=== PATIENT | female | born 1965 | race Caucasian/White ===

== ENCOUNTER 2017-04-25 01:12 | Emergency (ER) | payer OTHER ==
[2017-04-25 03:16] LABS: HEMOGLOBIN 12.5 gm/dl (12.3-15.3); RED BLOOD COUNT 4.23 M/UL (4.00-5.10); WHITE BLOOD COUNT 10.4 K/UL (4.5-11.0)
[2017-04-25 03:42] LABS: BUN/CREATININE RATIO 13 (0-10)
[2017-08-14] MEDS ORDERED: VENTOLIN/PROVE0.5 ML INH (22:35)
[2017-08-14] MEDS ORDERED: DESYREL 50 MG T50 MG PO (22:35)
[2017-08-14] MEDS ORDERED: NEURONTIN 300300 MG PO (22:35)
[2017-08-14] MEDS ORDERED: FLONASE 0.05% N16 GM (22:36)
[2017-08-14] MEDS ORDERED: LAMICTAL TAB 2525 MG PO (22:37)
[2017-08-14] MEDS ORDERED: QUETIAPINE FUM100 MG PO (22:38)
[2017-08-14] MEDS ORDERED: OXYBUTYNIN CHLO15 MG PO (22:38)
[2017-08-14] MEDS ORDERED: PAROXETINE HCL40 MG PO (22:39)
[2017-08-14] MEDS ORDERED: TIZANIDINE HCL6 MG PO (22:39)
[2017-08-14] MEDS ORDERED: LEVOTHYROXINE50 MCG PO (22:40)
[2017-08-14] MEDS ORDERED: WELLBUTRIN XL150 MG PO (22:40)
[2017-08-14] MEDS ORDERED: LISINOPRIL20 MG PO (22:41)
[2017-08-14] MEDS ORDERED: PRAVACHOL40 MG PO (22:41)
[2017-08-14] MEDS ORDERED: OMEPRAZOLE20 MG PO (22:41)
[2017-08-14] MEDS ORDERED: CLONIDINE HCL0.1 MG PO (22:41)
[2017-08-14] MEDS ORDERED: CYMBALTA 30 MG30 MG PO (22:42)
[2017-08-15] MEDS ORDERED: CYMBALTA30 MG PO (15:08)
[2017-08-15] MEDS ORDERED: FLONASE ALLER15.8 ML (15:10)
[2017-08-15] MEDS ORDERED: CATAPRES 0.1MG0.1 MG PO (15:11)
[2017-08-15] MEDS ORDERED: SYNTHROID50 MCG PO (15:32)
[2017-08-15] MEDS ORDERED: AZITHROMYCIN250 MG PO (15:35)
[2017-08-15] MEDS ORDERED: CEFUROXIME500 MG PO (15:36)
[2017-08-15] MEDS ORDERED: IBUPROFEN800 MG PO (15:45)
== END 2017-04-25 06:35 | disposition home or self-care (01) ==
LOC: ER1 01:12
PROVIDERS: Family Medicine
DX: R45.4 Irritability and anger (principal); R45.1 Restlessness and agitation; F31.9 Bipolar disorder, unspecified; E78.5 Hyperlipidemia, unspecified; I10 Essential (primary) hypertension; Z79.1 Long term (current) use of non-steroidal anti-inflammatories (NSAID); Z79.899 Other long term (current) drug therapy; F17.200 Nicotine dependence, unspecified, uncomplicated
CPT/HCPCS: 36415; 80053; 80307; 81001; 85025; 99285; G0480

== ENCOUNTER 2021-04-16 20:36 | Emergency (ER) | payer OTHER ==
[~2021-04-16 20:36] MED LIST: AMITRIPTYLINE100 MG PO; AZITHROMYCIN250 MG PO; BENTYL 20MG TAB20 MG PO; CATAPRES 0.1MG0.1 MG PO; CEFUROXIME500 MG PO; CIPRO500 MG PO; CLARITIN10 M2 PO; CLONIDINE HCL0.1 MG PO; COLACE100 MG PO; CYMBALTA 30 MG30 MG PO; CYMBALTA60 MG PO; DESYREL 50 MG T50 MG PO; EXPECTORANT200 MG PO; FLAGYL500 MG PO; FLONASE 0.05% N16 GM; FLONASE ALLER15.8 ML; IBUPROFEN800 MG PO; KLONOPIN1 MG PO; LAMICTAL TAB 2525 MG PO; LEVOTHYROXINE50 MCG PO; LISINOPRIL20 MG PO; NEURONTIN 300300 MG PO; OMEPRAZOLE40 MG PO; OMNICEF 300 MG300 MG PO; OXYBUTYNIN CHLO15 MG PO; PAROXETINE HCL40 MG PO; PHENERGAN 25 MG25 M1 PO; PRAVACHOL40 MG PO; PREDNISONE 50 M50 MG PO; PREDNISONE20 MG PO; QUETIAPINE FUM100 MG PO; SYNTHROID50 MCG PO; TIZANIDINE HCL6 MG PO; VENTOLIN HFA 66.7 GM INH; VRAYLAR PO; WELLBUTRIN XL150 MG PO; ZANAFLEX4 M1 PO; ZANAFLEX6 MG PO; ZOFRAN ODT 4 MG4 MG PO; ZYRTEC10 MG PO
[2021-04-16 21:39] LABS: HEMOGLOBIN 13.1 gm/dl (12.3-15.3); RED BLOOD COUNT 4.47 M/UL (4.00-5.10); WHITE BLOOD COUNT 9.9 K/UL (4.5-11.0)
[2021-04-17] MEDS ORDERED: AMOXICILLIN500 M1 PO (00:02)
== END 2021-04-17 00:36 | disposition home or self-care (01) ==
LOC: ER1 20:36
PROVIDERS: Family Medicine; Physician Assistant
DX: K12.2 Cellulitis and abscess of mouth (principal); N39.0 Urinary tract infection, site not specified; I10 Essential (primary) hypertension; F17.210 Nicotine dependence, cigarettes, uncomplicated
CPT/HCPCS: 70450; 71045; 80053; 80307; 81001; 83735; 84703; 85025; 87086; 99284